=== PATIENT | female | born 1995 | race African-American/Black ===

== ENCOUNTER → 2018-09-18 | Outpatient (CLI) | payer OTHER ==
--- NOTE | 2018-09-18 15:50 | RADIOLOGY IMAGING REPORT ---
FACILITY: [facility] PATIENT NAME: Milagro Sandoval : 1995 MR: [id number] V: [id number] EXAM DATE: ORDERING PHYSICIAN: CAORL KEITA TECHNOLOGIST: Location: [facility] Patient: Milagro Sandoval : 1995 Visit/Account:[id number] Date of Sevice: 09/18/2018 KNEE 3 VIEW LEFT Indication: Left knee pain. History of 3 prior left knee surgeries. Comparison: None. Findings: The distal femur, proximal tibia and fibula, the patella demonstrate normal mineralization. There is no effusion. Medial and lateral and patellofemoral joint spaces are smooth. IMPRESSION: Negative left knee radiograph. Report Dictated By: Santino Conti at 09/18/2018 3:45 PM Report E-Signed By: Santino Conti at 09/18/2018 3:46 PM WSN:[email or web address]
== END ==
LOC: RAD 14:35
PROVIDERS: ATTEND Emergency Medicine Sports Medicine
DX: M25.462 Effusion, left knee (principal); M25.562 Pain in left knee; M23.8X2 Other internal derangements of left knee